=== PATIENT | female | born 1950 | race Caucasian/White ===

== ENCOUNTER 2019-05-26 08:03 | Day surgery (SDC) | payer MEDICARE, OTHER ==
[~2019-05-26] VITALS: Ht 147.3 cm; Wt 71.4 kg
[2019-05-26] VITALS (13 sets, daily range): BP systolic 104–130; BP diastolic 60–73; PULSE 56–60; RESP 16–18; Ht 147.3 cm; Wt 71.4 kg
[~2019-05-26 08:03] MED LIST: CEPH500C PO; HYDR-4011 PO; TRIA15CR55 TOP
[2019-05-26] MEDS ORDERED: OMEP20CA16 PO (08:59)
[2019-05-26] MEDS ORDERED: BRIV50TA PO (08:59)
[2019-05-26] MEDS ORDERED: SOD CHLORIDE 0.9% 1,000 ML IV SCH (09:00)
[2019-05-26] MEDS ORDERED: CEFAZOLIN 2 GM/50 ML (PMX) 50 ML IVPB ONE (09:00)
[2019-05-26] MEDS ORDERED: BUPIVACAINE 0.25% (MPF) 30 ML INJ ONE (09:05)
--- NOTE | 2019-05-26 09:39 | PREAC ---
Date/Time of Note Date/Time of Note DATE: 05/26/19 TIME: 09:38 Anesthesia Eval and Record Evaluation Time Pre-Procedure Interview DATE: 05/26/19 TIME: 09:38 Age 68 Sex female NPO: 8 hrs Preoperative diagnosis back mass Planned procedure excision back mass Past Medical History Past Medical History: None Surgery & Anesthesia Issues No known issue Meds Anticoagulation: No Beta Faraz within 24 hr: No Reason Beta Faraz not given: Pt. not on B-Faraz Reported Medications Omeprazole* (Omeprazole*) 20 Mg Capsule.dr, 20 MG PO DAILY, #30 CAP 05/26/19 Brivaracetam (Briviact) 50 Mg Tablet, 50 MG PO BID, TAB 05/26/19 Discontinued Scripts Cephalexin* (Cephalexin*) 500 Mg Capsule, 500 MG PO Q8 for 5 Days, CAP Prov:KUNAL ACUÑA DO 10/25/16 Hydrocodone/Acetaminophen (Dixie 5-325 Tablet) 1 Each Tablet, 1 TAB PO Q6H PRN for PAIN, #15 TAB Prov:KUNAL ACUÑA DO 10/25/16 Triamcinolone Acetonide (Triamcinolone Acetonide) 0.1% - 15 Gm Cream.gm., 1 APPLIC TOP BID, #1 TUB Prov:KUNAL ACUÑA DO 10/25/16 Current Medications Sodium Chloride 1,000 ml @ 75 mls/hr [id number] IV ; Start 05/26/19 at 09:00; Stop 05/26/19 at 22:19 Meds reviewed: Yes Allergies Coded Allergies: No Known Allergy (Unverified , 05/26/19) Allergies Reviewed: Yes Labs/Studies Labs Reviewed: Reviewed by anesthesiologist test: N/A Studies: ECG (sr), CXR (nl) Pre-procedure Exam Last vitals Vital Signs Date Temp Pulse Resp B/P (MAP) Pulse Ox O2 O2 Flow FiO2 Time Delivery Rate 05/26/19 97.2 57 16 117/60 100 Room Air 09:31 (79) Airway: Adequate mouth opening Mallampati: Mallampati I Teeth: Abnormal (upper denture) Lung: Normal Heart: Normal ASA Physical Status ASA physical status: 1 Emergency: None Planned Anesthetic General/MAC: LMA, MAC, TIVA Planned Pain Management Parenteral pain med Pre-operative Attestations Prior to commencing anesthesia and surgery, the patient was re-evaluated, there was verification of: *The patient's identity *The results of appropriate recent lab work and preoperative vital signs *The above evaluation not changing prior to induction *Anesthetic plan, risk benefits, alternative and complications discussed with patient/family; questions answered; patient/family understands, accepts and wishes to proceed. BLANK PEOPLES MD May 26, 2019 09:39
[2019-05-26] MEDS ORDERED: FENTAnyl 50 MCG/ML VIAL ONE (09:43)
[2019-05-26] MEDS ORDERED: PROPOFOL 20 ML ONE (09:43)
[2019-05-26] MEDS ORDERED: CEFAZOLIN 1 GM INJ ONE (09:44)
[2019-05-26] MEDS ORDERED: MIDAZOLAM 1 MG/ML 2 ML INJ ONE (09:44)
[2019-05-26] MEDS ORDERED: BUPIVACAINE 0.5% (SDV) 30 ML INJ ONE (09:48)
[2019-05-26] MEDS ORDERED: LIDOCAINE 2% (MDV) 20 ML INJ ONE (09:48)
[2019-05-26] MEDS ORDERED: MEPERIDINE 25 MG INJ IV PRN (10:00)
[2019-05-26] MEDS ORDERED: FENTAnyl 50 MCG/ML VIAL IV PRN ×3 (10:00)
[2019-05-26] MEDS ORDERED: OXYCODONE/ACETAMINOPHEN (5/325) TAB PO PRN ×2 (10:00)
[2019-05-26] MEDS ORDERED: DIPHENHYDRAMINE 50 MG INJ IV PRN (10:00)
[2019-05-26] MEDS ORDERED: ONDANSETRON 4 MG INJ IV PRN (10:00)
[2019-05-26] MEDS ORDERED: HYDROmorphONE 1 MG/5 ML IV SYRINGE IV PRN ×3 (10:00)
--- NOTE | 2019-05-26 10:27 | OPR ---
Date/Time of Note Date/Time of Note DATE: 05/26/19 TIME: 10:25 Operative Report Procedure Date: May 26, 2019 Preoperative Diagnosis back mass Postoperative Diagnosis same Operation/Procedure Performed 1. excision of back mass 4 cm mass 4 cm incision 2. localized adjacent tissue transfer withe the use of skin flaps 8 sq cm defect of the back 3. therapeutic injection of subcutaneous local anesthesia Surgeon see signature line Admitting Representative none Anesthesia Type: MAC Estimated Blood Loss: 0 - 10 ml's Transfusion none Specimen back mass Grafts/Implants none Complications none Pt Condition Post Procedure: stable Indications This is a 68-year-old female with the back mass. She requests surgical excision. Risks alternatives benefits and personal were discussed the patient. Patient expressed understanding consents to the operation. Procedure Description Patient is taken to the OR and prepped and draped in usual sterile fashion. Surgical time was performed. IV antibiotics given. Therapeutic subcutaneous local anesthesia was injected throughout the area of the incision and the mass. 15 blade was used to make elliptical incision. Dissection with cautery skin onto the mass and the mass was circumferentially excised. Good hemostasis status. Due to tissue defect localization to stress her with these of skin flaps performed. Multilayer closed with interrupted 3-0 Vicryl and skin dana. Dry dressings were applied. Janelle RODRÍGUEZ May 26, 2019 10:27
[2019-05-26] MEDS ORDERED: HYDROCODONE/APAP (5/325) TAB PO ONE (10:30)
== END 2019-05-26 12:25 | disposition home or self-care (01) ==
LOC: SDS 08:03
PROVIDERS: ATTEND Surgery
DX: L72.0 Epidermal cyst (principal); K21.9 Gastro-esophageal reflux disease without esophagitis
CPT/HCPCS: 14000; J0690; J2250; J3010; 88307